=== PATIENT | male | born 1985 | race Caucasian/White ===

== ENCOUNTER 2019-08-20 13:08 | Emergency (ER) | payer OTHER ==
[2019-08-20] MEDS ORDERED: ACETAMINOPHEN W/COD #3 TAB 1 EA TAB PO ONE (13:38)
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
[2019-08-20 14:50] VITALS: O2SAT 94
--- NOTE | 2019-08-20 14:56 | RAD ---
EXAM: XR Left Shoulder Complete, 2 or More Views CLINICAL HISTORY: trauma TECHNIQUE: Two or more views of the left shoulder. COMPARISON: No relevant prior studies available. FINDINGS: Bones/joints: There is old left clavicle fracture. There is slight cortical irregularity of the posterior lateral left third rib compatible with age-indeterminate fracture. No dislocation. Soft tissues: Unremarkable. Pleural space: There is mild left apical lateral pleural thickening. IMPRESSION: There is slight cortical irregularity of the posterior lateral left third rib compatible with age-indeterminate fracture. Electronically signed by: Jelly Casillas MD 08/20/2019 2:55 PM CDT
[2019-08-20 15:35] VITALS: BP 149/96; TEMP 98.1
== END 2019-08-20 15:35 | disposition home or self-care (01) ==
LOC: ER 13:08
DX: S22.32XA Fracture of one rib, left side, initial encounter for closed fracture (principal); M25.512 Pain in left shoulder; F17.200 Nicotine dependence, unspecified, uncomplicated; V89.0XXA Person injured in unspecified motor-vehicle accident, nontraffic, initial encounter; Y92.9 Unspecified place or not applicable